=== PATIENT | female | born 1985 | race Caucasian/White ===

== ENCOUNTER → 2016-05-17 | Outpatient (CLI) | payer OTHER ==
[~2016-05-17] MED LIST: CETIRIZINE; VICODIN 5/5001 UDTAB PO
== END ==
LOC: COL.LAB 12:07
DX: Z32.00 Encounter for pregnancy test, result unknown (principal)

== ENCOUNTER 2017-06-24 18:06 | Emergency (ER) | payer BC, OTHER ==
[2017-06-24] MEDS ORDERED: PREDNISONE20 MG PO (19:39)
[2017-06-24 19:46] VITALS: BP 143/79; PULSE 95; TEMP 98.4
== END 2017-06-24 19:56 | disposition home or self-care (01) ==
LOC: COL.ER 18:06
DX: O99.89 Other specified diseases and conditions complicating pregnancy, childbirth and the puerperium (principal); T78.40XA Allergy, unspecified, initial encounter; Z3A.32 32 weeks gestation of pregnancy
CPT/HCPCS: J1200; J2930; J7030; J7512

== ENCOUNTER 2017-08-02 06:33 | Inpatient (IN) | payer BC, OTHER ==
[~2017-08-02] VITALS: Ht 165.1 cm; Wt 130.0 kg
[~2017-08-02 06:33] MED LIST changes: -CETIRIZINE; +PREDNISONE20 MG PO; +ZYRTEC 10MG10 MG PO
[2017-08-02] MEDS ORDERED: LEVOXYL0.05 MG PO (18:49)
[2017-08-02] MEDS ORDERED: PRENATAL MVI (18:50)
[2017-08-02] MEDS ORDERED: OSCAL 500 TAB500 MG PO (18:50)
[2017-08-02] MEDS ORDERED: AMBIEN 5MG TABLE5 MG PO (18:51)
[2017-08-02 19:15] VITALS: BP 134/69; PULSE 90; TEMP 97.7
[2017-08-02 19:31] LABS: BASO % 0.2 % (0.0-2.0); EOS # 0.1 (0.0-0.7); EOS % 0.9 % (0-4.0); GRAN # 6.5 (1.4-6.5); GRAN % 71.6 % (42.2-75.2); HEMATOCRIT 34.2 % (37.0-47.0); HEMOGLOBIN 11.7 g/dl (12.5-16.0); LYMPH # 1.9 (1.2-3.4); LYMPH % 20.9 % (20.0-51.0); MEAN CELL VOLUME 90 fl (80.0-100.0); MEAN CORPUSCULAR HEMOGLOBIN 31 pg (27.0-31.0); MEAN CORPUSCULAR HGB CONC 34 g/dl (33.0-37.0); MEAN PLATELET VOLUME 11.2 fl (7.4-10.4); MONO # 0.5 (0.1-0.6); PLATELET COUNT 261 K/mm3 (130-400); RED BLOOD COUNT 3.79 M/mm3 (4.10-5.30); REDCELL DISTRIBUTION WIDTH-CV 13.7 % (11.5-14.5)
[2017-08-02 19:45] VITALS: BP 145/67; PULSE 81
[2017-08-02 20:15] VITALS: BP 134/83; PULSE 75
[2017-08-02 20:45] VITALS: BP 147/87; PULSE 85
[2017-08-02 21:15] VITALS: BP 142/83; PULSE 80
[2017-08-02 21:45] VITALS: BP 146/83; PULSE 88
[2017-08-03] VITALS (65 sets, daily range): BP systolic 96–171; BP diastolic 45–95; PULSE 70–101; TEMP 8.9
[2017-08-04 00:30] VITALS: BP 119/76; PULSE 78; TEMP 98.9
[2017-08-04 04:30] VITALS: BP 130/74; PULSE 85; TEMP 97.5
[2017-08-04 07:56] VITALS: BP 120/73; PULSE 84; TEMP 98.2
[2017-08-04 12:00] VITALS: BP 127/58; PULSE 83; TEMP 98
[2017-08-04 16:48] VITALS: BP 123/55; PULSE 90
[2017-08-04 21:00] VITALS: BP 115/56; PULSE 97; TEMP 98.4
[2017-08-05 07:30] VITALS: BP 109/52; PULSE 88; TEMP 98.6
[2017-08-05] MEDS ORDERED: PERCOCET 325 MG1 TA2 PO (17:50)
[2017-08-05] MEDS ORDERED: IBU800 M1 PO (17:50)
[2017-08-05 19:20] VITALS: BP 126/69; PULSE 82; TEMP 98
== END 2017-08-05 19:35 | disposition home or self-care (01) | DRG 765 ==
LOC: LDR 06:33 → OB 18:28 → LDR 18:28 → OB 08-03 22:44
PROVIDERS: Student in an Organized Health Care Education/Training Program
PROC: 3E0P7VZ Introduction of Hormone into Female Reproductive, Via Natural or Artificial Opening (ICD-10-PCS; 2017-08-02)
PROC: 10D00Z1 Extraction of Products of Conception, Low, Open Approach (ICD-10-PCS; principal; 2017-08-03)
DX: O14.04 Mild to moderate pre-eclampsia, complicating childbirth (principal); E72.12 Methylenetetrahydrofolate reductase deficiency; Z68.42 Body mass index [BMI] 45.0-49.9, adult; O64.8XX0 Obstructed labor due to other malposition and malpresentation, not applicable or unspecified; Z3A.39 39 weeks gestation of pregnancy; Z37.0 Single live birth; O99.284 Endocrine, nutritional and metabolic diseases complicating childbirth; E28.2 Polycystic ovarian syndrome; O62.1 Secondary uterine inertia; O76 Abnormality in fetal heart rate and rhythm complicating labor and delivery; O99.214 Obesity complicating childbirth; E03.9 Hypothyroidism, unspecified
CPT/HCPCS: J0690; J2270; J2300; J2590; J7120

== ENCOUNTER 2021-07-18 10:47 | Emergency (ER) | payer BC ==
[~2021-07-18] VITALS: Ht 170.2 cm; Wt 103.6 kg
[~2021-07-18 10:47] MED LIST changes: +AMBIEN 5MG TABLE5 MG PO; +IBU800 M1 PO; +LEVOXYL0.05 MG PO; +OSCAL 500 TAB500 MG PO; +PERCOCET 325 MG1 TA2 PO; +PRENATAL MVI
[2021-07-18 10:53] VITALS: TEMP 98.5
[2021-07-18 11:21] LABS: BASO % 0.2 % (0.0-2.0); EOS # 0.1 K/mm3 (0.0-0.7); EOS % 0.6 % (0.0-4.0); GRAN # 8.1 K/mm3 (1.4-6.5); GRAN % 78.8 % (42.2-75.2); HEMATOCRIT 44.2 % (37.0-47.0); HEMOGLOBIN 15.2 g/dl (12.5-16.0); LYMPH # 1.6 K/mm3 (1.2-3.4); LYMPH % 15.3 % (20.0-51.0); MEAN CELL VOLUME 86 fl (80.0-100.0); MEAN CORPUSCULAR HEMOGLOBIN 30 pg (27-31); MEAN CORPUSCULAR HGB CONC 34 g/dl (33.0-37.0); MEAN PLATELET VOLUME 8.9 fl (7.4-10.4); MONO # 0.5 K/mm3 (0.1-0.6); MONO % 4.9 % (1.7-9.3); PLATELET COUNT 386 K/mm3 (130-400); RED BLOOD COUNT 5.12 M/mm3 (4.10-5.30); REDCELL DISTRIBUTION WIDTH-CV 12.5 % (11.5-14.5)
[2021-07-18 11:38] LABS: BILIRUBIN,TOTAL 0.5 mg/dL (0.2-1.2); C-REACTIVE PROTEIN 3.17 mg/dL (0.00-0.50); CALCIUM 9.6 mg/dL (8.4-10.2); CREATININE, serum 0.68 mg/dL (0.57-1.11); POTASSIUM 3.5 mmol/L (3.5-4.5); TOTAL PROTEIN 8.2 gm/dL (6.2-8.1)
[2021-07-18 14:41] LABS: COLLECTION METHOD CLEAN CATCH
[2021-07-18 14:48] LABS: MUCOUS Present (NOT PRESENT); PH 6 (5-8); URINE APPEARANCE Clear (CLEAR/HAZY); URINE BACTERIA None Seen /hpf (NONE SEEN); URINE BILIRUBIN Negative (NEGATIVE); URINE BLOOD 1+ (NEGATIVE); URINE COLOR Yellow (YELLOW); URINE GLUCOSE Negative (NEGATIVE); URINE KETONE 2+ (NEGATIVE); URINE LEUKOCYTE ESTERASE Negative (NEGATIVE); URINE NITRATE Negative (NEGATIVE); URINE PROTEIN(semi-quant) 1+ (NEGATIVE); URINE UROBILINOGEN Negative (NEGATIVE)
[2021-07-18 16:09] VITALS: BP 126/88; PULSE 95
== END 2021-07-18 16:15 | disposition short-term general hospital (02) ==
LOC: COL.ER 10:47
PROVIDERS: Nurse Practitioner
DX: K91.30 Postprocedural intestinal obstruction, unspecified as to partial versus complete (principal); K95.89 Other complications of other bariatric procedure
CPT/HCPCS: J2405; J3010; J7030; Q9967